=== PATIENT | male | born 1935 | race Caucasian/White ===

== ENCOUNTER → 2016-07-17 | Outpatient (CLI) | payer MEDICARE ==
[~2016-07-17] MED LIST: ALTABAX TOP; ASPIRIN81 M1 PO; BACLOFEN10 MG PO; BENICAR PO; BENICAR20 MG PO; COLACE PO; FISH OIL 1,0001 EAC1 PO; FISH OIL 1,0001 EACH PO; FLEXERIL10 M1 PO; HYDROCODON-ACE1 EAC7 PO; LEVOTHYROXINE150 MCG PO; LEVOXYL75 MCG PO; LORTAB 5/500 TA1 TA1 PO; METHOTREXATE1 G1; METHOTREXATE2.5 MG PO; MEVACOR40 MG PO; MILK OF MAGNESIA PO; NATURAL VITA200 UNI1 PO; PRAVASTATIN SOD40 MG PO; VIT C PO; VITAMIN C250 M1 PO
--- NOTE | ~2016-07-17 | CT71 ---
[facility] A Service of [facility] RADIOLOGY TEXT RESULTS PATIENT: BENIGNO SANDHU LOCATION: [facility] : 35 UNIT #: [id number] AGE: [address]: Rose Chicas MD SEX: M ORDER DR: [id number] [facility] [address]. [place], [place] [address] [id number] O MR#: [id number] Acc #: [id number] NAME: BENIGNO SANDHU : 1935 SEX: M STUDY DATE/TIME: 07/17/2016 9:06 UNIT: [facility] ROOM: STUDY DESCRIPTION: CT Head Wo Contrast Attending Physician: Rose Chicas M.D. Referring Physician: Rose Chicas M.D. Ordering Physician: Rose Chicas M.D. Primary Care Physician: Rose Chicas M.D. MEDICAL IMAGING REPORT This report is preliminary unless electronic signature is present EXAM Head CT without contrast, 07/17/16. HISTORY Right side headache, status post head trauma to right side of head 1 month ago with memory changes, mental status change post-concussion syndrome. TECHNIQUE This CT exam was performed with one or more of the following radiation dose reduction techniques: automatic exposure control, adjustment of mA and/or kV according to patient size, and iterative reconstruction. FINDINGS Axial images of the brain obtained without contrast show generalized atrophy. There are chronic ischemic changes seen around the ventricles. There is no evidence of mass effect, hemorrhage, or edema and no midline shift is seen. No acute changes are noted. IMPRESSION Normal except for atrophy and chronic ischemic changes. No acute changes are seen. Dictated by... Elliott Mckeon M.D. THIS IS AN ELECTRONICALLY VERIFIED REPORT Elliott Mckeon M.D. at 07/18/2016 2:12 PM EDWARD/chantal TD: 07/17/2016 16:39 JOB #: [id number] [facility] A Service of [facility] RADIOLOGY TEXT RESULTS PATIENT: BENIGNO SANDHU LOCATION: [facility] : 35 UNIT #: [id number] AGE: [address]: Rose Chicas MD SEX: M ORDER DR: MEDICAL IMAGING REPORT Page 1 of 1 COPY
== END | disposition home or self-care (01) ==
LOC: CCAT 08:47
DX: R41.3 Other amnesia (principal); F07.81 Postconcussional syndrome
CPT/HCPCS: 70450